=== PATIENT | female | born 1945 | race Hispanic/Latino ===

== ENCOUNTER 2019-05-27 07:12 | Day surgery (SDC) | payer MEDICARE ==
[2019-05-27] MEDS ORDERED: NACL 0.9% 500 ML 500 ML ONE (07:37)
[2019-05-27] MEDS ORDERED: NACL 0.9% 500 ML 500 ML IV SCH (08:00)
[2019-05-27] MEDS ORDERED: ATROPINE 0.1% (CARDIAC) ONE (08:17)
[2019-05-27] MEDS ORDERED: NITROSTAT SL ONE (08:17)
--- NOTE | 2019-05-27 09:34 | Short Stay Summary ---
Short Stay Documentation Date of service: 05/27/19 - History H&P: obtained from office - Allergies and Medications Current Medications: Allergies codeine Allergy (Unverified 05/27/19 07:13) Dizziness aspirin Adverse Reaction (Unverified 05/27/19 07:14) Nausea Sulfa (Sulfonamide Antibiotics) Adverse Reaction (Unverified 05/27/19 07:13) Rash Home Medications Medication Instructions Recorded Confirmed Last Taken Type Cholecalciferol (Vitamin D3) 3,500 unit PO 2XW 05/27/19 05/27/19 05/23/19 History [Vitamin D3 3,000 unit] Cyanocobalamin (Vitamin B-12) 2,500 mcg PO DAILY 05/27/19 05/27/19 05/26/19 History [Vitamin B12] Estradiol [Imvexxy] 10 mcg VG 2XW 05/27/19 05/27/19 05/26/19 History Famotidine [Pepcid] 20 mg PO BID 05/27/19 05/27/19 05/26/19 History Fexofenadine HCl [Zeenat Allergy] 180 mg PO DAILY 05/27/19 05/27/19 05/26/19 History LORazepam [Ativan] 1 mg PO BID 05/27/19 05/27/19 05/26/19 History Levothyroxine [Synthroid] 75 mcg PO QAM 05/27/19 05/27/19 05/26/19 History [place]-3/Dha/Epa/Fish Oil [Fish Oil 1 each PO DAILY 05/27/19 05/27/19 05/26/19 History 500 mg Softgel] Ubidecarenone [Co Q-10] 100 mg PO DAILY 05/27/19 05/27/19 05/26/19 History Verapamil [Calan] 120 mg PO BID 05/27/19 05/27/19 05/26/19 History cloNIDine [Catapres] 0.1 mg PO PRN 05/27/19 05/27/19 05/27/19 06:30 History Active Medications Sodium Chloride (Nacl 0.9% 500 Ml) 500 mls @ 50 mls/hr IV DIRECT ANGELIQUE - Physical exam General appearance: no acute distress Integumentary: no rash HEENT: Atraumatic Lungs: Clear to auscultation Breasts: deferred Heart: Regular rate Gastrointestinal: normal Female Genitourinary: deferred Rectal Exam: deferred Extremities: no ischemia Neurological: Normal gait - Brief post op/procedure progress note Date of procedure: 05/27/19 Pre-op diagnosis: Syncope Post-op diagnosis: same Procedure: TTT Anesthesia: none Findings: See report Surgeon: SUSIE TURNER Estimated blood loss: none Pathology: none Condition: stable - Hospital course Hospital course: Uneventful - Disposition Condition at discharge: Good Disposition: DC-01 TO HOME OR SELFCARE Short Stay Discharge Plan Activity: advance as tolerated Weight Bearing Status: Weight Bear as Tolerated Diet: low salt Follow up with: GITA THOMPSON MD [Primary Care Provider] - 7 Days
[2019-05-27 10:23] VITALS: BP 152/75
--- NOTE | 2019-05-27 18:40 | Procedure Note ---
TILT TABLE TEST INDICATION: Syncope. DESCRIPTION OF PROCEDURE: After obtaining written consent, the patient was brought to the open hearth laborer area. The patient was secured on the tilt table test. The patient's blood pressure supine was 173/92 with a heart rate of 60 beats per minute, sinus rhythm. The patient was tilted to 85 degrees from horizontal. Immediately after tilting, her blood pressure was 164/87 with a heart rate of 60 beats per minute. The patient was kept in the upright position for 10 minutes. At the end of these 10 minutes, her blood pressure was 166/95 with a heart rate of 65 beats per minute. Subsequently, she was given a sublingual nitroglycerin 0.4 mg and monitored for another 10 minutes in the upright position. At the end of these 10 minutes, her blood pressure was 121/82 with a heart rate of 77 beats per minute. The patient did not have any symptoms. The patient did not have any episodes of syncope or dizziness. The patient was tilted back to horizontal with a final blood pressure of 132/81 and heart rate of 72 beats per minute. IMPRESSION: This is a negative tilt table test with no evidence of vasodepressor or a cardioinhibitory response to nitroglycerin. JOB# [id number] IZAIAH/LOLLY
== END 2019-05-27 07:13 | disposition home or self-care (01) ==
LOC: CATHLABREC 07:12
PROVIDERS: ATTEND Internal Medicine
DX: R55 Syncope and collapse (principal); E78.00 Pure hypercholesterolemia, unspecified; I10 Essential (primary) hypertension; M19.90 Unspecified osteoarthritis, unspecified site; Z88.5 Allergy status to narcotic agent; Z88.6 Allergy status to analgesic agent; Z88.2 Allergy status to sulfonamides; Z79.899 Other long term (current) drug therapy; Z98.49 Cataract extraction status, unspecified eye; Z90.710 Acquired absence of both cervix and uterus; Z98.890 Other specified postprocedural states; Z86.73 Personal history of transient ischemic attack (TIA), and cerebral infarction without residual deficits
CPT/HCPCS: 93660; J7040; J0461